=== PATIENT | male | born 1955 | race Caucasian/White ===

== ENCOUNTER 2020-10-20 17:25 | Emergency (ER) | payer OTHER ==
--- OUTSIDE RECORDS SUMMARY | 2020-10-20 17:27 | XMS REPORT | Continuity of Care Document ---
:1955 Author Organization [facility] t Address [address] [place] [address] Care Team Providers Name Role Phone Reji CONNER Attending Clinician Doctor Unassigned, Name Attending Clinician Unavailable Nguyen ARAMBULA Attending Clinician Pratibha CORMIER, A Attending Clinician Unavailable Jonelle CONNER, F Attending Clinician Black ARAMBULA, A Attending Clinician Problems This patient has no known problems. Allergies, Adverse Reactions, Alerts This patient has no known allergies or adverse reactions. Medications This patient has no known medications. Procedures This patient has no known procedures. Encounters Start End Encounter Admission Attending Care Care Encounter Source Date/Time Date/Time Type Type Clinicians Facility Department ID 2020-10-03 2020-10-03 Emergency Reji [facility] [id number] 10:50:00 14:09:00 Fern [place] [id number] [place] [id number] [place] [id number] 2020-10-03 2020-10-03 Orders Doctor VAZQUEZ 1.2.840.114 [id number] 00:00:00 00:00:00 Only UnassignedBAYRON [id number] [place] [facility] [id number] 2020-02-29 2020-02-29 Orders Doctor VAZQUEZ [id number] 00:00:00 00:00:00 Only UnassignedBAYRON [id number] [place] [facility] [id number] 2019-12-22 2019-12-22 [facility] 1.2.840.114 [id number] 00:00:00 00:00:00 Destin [place] [id number] [place] [id number] [facility] [phone] [address] 2019-12-15 2019-12-15 [facility] 1.2.840.114 [id number] 07:56:13 08:16:13 ne Visit Destin Harper [id number] [place] [id number] [facility] [phone] [address] 2019-11-24 2019-11-24 [facility] 1.2.840.114 [id number] 00:00:00 00:00:00 Destin Harper [id number] [place] [id number] [facility] [phone] [address] 2019-11-15 2019-11-15 [facility] 1.2.840.114 [id number] 08:45:20 09:05:20 ne Visit Destin Harper [id number] [place] [id number] [facility] [phone] [address] 2019-11-09 2019-11-09 [facility] 1.2.840.114 [id number] 00:00:00 00:00:00 Destin Harper [id number] [place] [id number] [facility] [phone] [address] 2019-11-08 2019-11-08 [facility] 1.2.840.114 [id number] 00:00:00 00:00:00 Destin Harper [id number] [place] [id number] [facility] [phone] [address] 2019-11-06 2019-11-06 Refill [facility] 1.2.840.114 [id number] 00:00:00 00:00:00 Destin Harper [id number] [place] [id number] [facility] [phone] [facility] 2019-11-03 2019-11-03 Transition Zac Mckinnon 1.2.840.114 [id number] 00:00:00 00:00:00 of Care Tacho Argueta [id number] [place] [id number] [phone] [facility] 2019-11-02 2019-11-02 Emergency [facility] 1.2.840.114 [id number] 18:53:00 21:17:00 Samantha Harper [id number] [place] [id number] [place] [phone] [id number] 2019-10-18 2019-10-18 [facility] 1.2.840[facility]114 [id number] 00:00:00 00:00:00 Destin Harper [id number] [place] [id number] [facility] [phone] [facility] 2019-10-11 2019-10-11 [facility] 1.2.840.114 [id number] 00:00:00 00:00:00 Mindi Harper [id number] [place] [id number] [facility] [phone] [facility] Results This patient has no known results.
--- NOTE | 2020-10-20 20:04 | RAD REPORT ---
EXAM DESCRIPTION: RAD - Abdomen Single View - 10/20/2020 7:51 pm CLINICAL HISTORY: PAIN Pain COMPARISON: No comparisons FINDINGS: The bowel gas pattern is non-obstructive. No evidence of free air or pneumatosis. Cholecys tectomy clips. Moderate stool is present throughout the colon. No suspicious calcifications. Moderate dextroscoliosis of the lumbar spine. Postsurgical changes are present lumbosacral spine. IMPRESSION: No acute finding evident. Moderate stool retention.
[2020-10-20 21:08] LABS: Urine Blood Negative (Negative); Urine Glucose Negative (Negative); Urine Protein Negative (Negative); Urine pH 8.5 (5.0-7.0)
--- NOTE | 2020-10-20 21:12 | ER ---
Nurse's Notes [facility] Name: Maikol Trevino Age: 65 yrs Sex: Male : 1955 Arrival Date: 10/20/2020 Time: 17:27 Bed DIS2 Private MD: Diagnosis: Cholelithiasis Presentation: 10/20 19:06 Chief complaint: Patient states: Left sided abdominal pain x 2 weeks. Pt stated that he kg was in [facility] 2 wks ago for the same thing and they gave him antibiotics for a stomach infection. Coronavirus screen: Client denies travel out of the [place] in the last 14 days. At this time, unable to obtain information related to travel outside the [place] At this time, the client does not indicate any symptoms associated with coronavirus-19. Ebola Screen: Patient negative for fever greater than or equal to 101.5 degrees Fahrenheit, and additional compatible Ebola Virus Disease symptoms Patient denies exposure to infectious person. Patient denies travel to an Ebola-affected area in the 21 days before illness onset. Initial Sepsis Screen: Does the patient meet any 2 criteria? No. Patient's initial sepsis screen is negative. Does the patient have a suspected source of infection? No. Patient's initial sepsis screen is negative. Risk Assessment: Do you want to hurt yourself or someone else? Patient reports no desire to harm self or others. Onset of symptoms is unknown. 19:06 Method Of Arrival: EMS: [facility] kg 19:06 Acuity: CHRISSIE 3 kg Triage Assessment: 19:09 General: Appears in no apparent distress. Behavior is calm, cooperative, appropriate kg for age, quiet. Pain: Complains of pain in left lower quadrant and abdomen diffusely. GI: Reports lower abdominal pain, upper abdominal pain, diarrhea, nausea, vomiting. Historical: - Allergies: 19:09 No Known Allergies; kg - Home Meds: 19:09 Bentyl 10 mg oral cap 1 cap [Active]; hyoscyamine sulfate 0.125 mg SL subl [Active]; kg Lomotil 2.5-0.025 mg oral tab [Active]; omeprazole 20 mg Oral TbEC [Active]; promethazine 12.5 mg Oral tab [Active]; Prozac 20 mg Oral cap [Active]; Risperdal 2 mg Oral tab [Active]; - PMHx: 19:09 Alcohol dependence; Bipolar disorder; COPD; GERD; Anxiety; kg - PSHx: 19:09 Appendectomy; hernia repair; kg - Immunization history:: Adult Immunizations up to date, Client reports receiving the 2nd dose of the Covid vaccine, Pfizer- unknown date. - Social history:: Smoking status: Patient reports the use of cigarette tobacco products, smokes one-half pack cigarettes per day. Screenin:15 Abuse screen: Denies threats or abuse. Denies injuries from another. Nutritional kg screening: No deficits noted. Tuberculosis screening: No symptoms or risk factors identified. Fall Risk None identified. Assessment: 22:40 General: Appears in no apparent distress. Behavior is calm, cooperative. Pain: bb Complains of pain in abdomen. Neuro: Level of Consciousness is awake, alert, obeys commands, Oriented to person, place, time, situation. Cardiovascular: Capillary refill < 3 seconds Patient's skin is warm and dry. Respiratory: Respiratory effort is even, unlabored, Respiratory pattern is regular. Derm: Skin is pink, warm \T\ dry. Musculoskeletal: Circulation, motion, and sensation intact. 10/21 00:57 Reassessment: Patient is alert, oriented x 3, equal unlabored respirations, skin bb warm/dry/pink. pt c/o pain 8/10 medicated per MAY will monitor for 15 minutes then pt to be discharged back to [facility]. Pt verbalized understanding of and agrees to plan of care. 01:25 Reassessment: pt states the pain is worse Dr Forde notified new orders received pt bb medicated see MAY. 02:18 Reassessment: Patient is alert, oriented x 3, equal unlabored respirations, skin bb warm/dry/pink. pt states he is feeling better discharge instructions given pt escorted to exit via wheelchair by technician trainee and transported by taxi to [place]. Vital Signs: 10/20 19:06 BP 139 / 73; Pulse 93; Resp 20; Temp 99.2(O); Pulse Ox 95% on R/A; Weight 78.02 kg (R); kg Height 5 ft. 8 in. (172.72 cm); Pain 8/10; 22:40 BP 135 / 69; Pulse 91; Resp 16 S; Temp 99.6(O); Pulse Ox 95% on R/A; bb 23:46 BP 122 / 78 LA Sitting (auto/reg); Pulse 93 MON; Resp 16 S; Temp 99.7(O); Pulse Ox 97% ds4 on R/A; Pain 8/10; 10/21 00:58 BP 126 / 78; Pulse 94; Resp 16 S; Temp 99.3(O); Pulse Ox 94% on R/A; bb 02:19 BP 133 / 70; Pulse 95; Resp 18 S; Pulse Ox 93% on R/A; bb 10/20 19:06 Body Mass Index 26.15 (78.02 kg, 172.72 cm) kg ED Course: 10/20 17:27 Patient arrived in ED. mr 19:09 Triage completed. kg 19:09 Arm band placed on. kg 19:15 Patient has correct armband on for positive identification. kg 19:50 XRAY Abdomen 1 View In Process Unspecified. EDMS 22:02 Miki Forde MD is Attending Physician. pkl 22:17 Naz Lui RN is Primary Nurse. bb 22:38 Missed attempt(s): 20 gauge in right forearm. Bleeding controlled, band aid applied, ds4 catheter tip intact. 22:40 Initial lab(s) drawn, by ED staff, sent to lab. Inserted saline lock: 22 gauge in right bb wrist, using aseptic technique. Blood collected. 23:01 CT Abd/Pelvis - IV Contrast Only In Process Unspecified. EDMS 10/21 00:38 Jose Mccray MD is Referral Physician. pkl 02:26 No provider procedures requiring assistance completed. IV discontinued, intact, bb bleeding controlled, No redness/swelling at site. Pressure dressing applied. Administered Medications: 10/20 22:42 Drug: NS 0.9% 1000 ml Route: IV; Rate: 125 ml/hr; Site: right wrist; bb 10/21 02:15 Follow up: IV Status: Order to discontinue infusion; IV Intake: 500ml bb 00:56 Drug: morphine 4 mg {Note: RASS 0.} Route: IVP; Site: right wrist; bb 01:26 Follow up: Response: Pain is unchanged, physician notified bb 00:56 Drug: Zofran (Ondansetron) 4 mg Route: IVP; Site: right wrist; bb 01:26 Follow up: Response: No adverse reaction bb :25 Drug: fentaNYL (PF) 25 mcg Route: IVP; Site: right wrist; bb 02:20 Follow up: Response: No adverse reaction; Pain is decreased; RASS: Alert and Calm (0) bb Intake: 02:15 IV: 500ml; Total: 500ml. bb Outcome: 10/20 21:12 Patient left the ED. bb 10/21 00:39 Discharge ordered by . crystal 02:26 Discharged to home via wheelchair. bb 02:26 Condition: stable 02:26 Discharge instructions given to patient, Instructed on discharge instructions, follow up and referral plans. medication usage, Demonstrated understanding of instructions, follow-up care, medications, Prescriptions given X 1. 02:26 Patient left the ED. bb Signatures: Dispatcher [employer] EDMS Miki Forde MD MD pkl Rivera, Mary mr Ballard, Brenda RN RN Vick Noriega ds4 Jeannette Song RN RN kg
[2020-10-20 22:48] LABS: Urine Blood Negative (Negative); Urine Glucose Negative (Negative); Urine Protein Negative (Negative); Urine Specific Gravity 1.015 (1.005-1.030); Urine pH 8.5 (5.0-7.0)
[2020-10-20] MEDS ORDERED: NA CHLORIDE 0.9% 1,000 ML ONE (22:50)
[2020-10-20 22:52] LABS: Absolute Lymphocytes (CBC) 1.7 K/uL (0.7-4.9); Basophils % 0.5 % (0-1.3); Hematocrit 40.2 % (39.6-49.0); Lymphocytes % 15.1 % (15.3-44.8); MPV 8.1 fL (7.6-11.3)
[2020-10-20 23:10] LABS: ALT/SGPT 27 U/L (12-78); AST/SGOT 18 U/L (15-37); Albumin 3.7 g/dL (3.4-5.0); Alkaline Phosphatase 78 U/L (45-117); BUN Blood Urea Nitrogen 8 mg/dL (7-18); Bicarbonate 25 mmol/L (21-32); Bilirubin Direct < 0.1 mg/dL (0-0.2); Bilirubin Total 0.4 mg/dL (0.2-1.0); Glucose Level 104 mg/dL (74-106); Lipase 93 U/L (73-393); Protein, Total 7.4 g/dL (6.4-8.2); Sodium Level 142 mmol/L (136-145)
[2020-10-20 23:12] LABS: Barbiturates NEGATIVE (NEGATIVE); Benzodiazepines NEGATIVE (NEGATIVE); Cocaine NEGATIVE (NEGATIVE); METHAMPHETAM NEGATIVE (NEGATIVE); Methadone NEGATIVE (NEGATIVE); Opiates NEGATIVE (NEGATIVE); Phencyclidine NEGATIVE (NEGATIVE); THC Cannibis NEGATIVE (NEGATIVE)
--- NOTE | 2020-10-21 00:40 | EDPHYS ---
Physician Documentation [facility] Name: Maikol Trevino Age: 65 yrs Sex: Male : 1955 Arrival Date: 10/20/2020 Time: 17:27 Bed DIS2 Private MD: ED Physician Miki Forde HPI: 10/20 22:09 This 65 yrs old Male presents to ER via EMS with complaints of Abdominal Pain.pkl 22:09 The patient presents with abdominal pain in the left upper quadrant, in the left lower pkl quadrant. Onset: The symptoms/episode began/occurred today. The symptoms do not radiate. Associated signs and symptoms: none. The patient has experienced a previous episode, approximately 2 weeks ago, Patient was seen at [facility] ER and given antibiotic and sent home.. Historical: - Allergies: 19:09 No Known Allergies; kg - Home Meds: 19:09 Bentyl 10 mg oral cap 1 cap [Active]; hyoscyamine sulfate 0.125 mg SL subl [Active]; kg Lomotil 2.5-0.025 mg oral tab [Active]; omeprazole 20 mg Oral TbEC [Active]; promethazine 12.5 mg Oral tab [Active]; Prozac 20 mg Oral cap [Active]; Risperdal 2 mg Oral tab [Active]; - PMHx: 19:09 Alcohol dependence; Bipolar disorder; COPD; GERD; Anxiety; kg - PSHx: 19:09 Appendectomy; hernia repair; kg - Immunization history:: Adult Immunizations up to date, Client reports receiving the 2nd dose of the Covid vaccine, Pfizer- unknown date. - Social history:: Smoking status: Patient reports the use of cigarette tobacco products, smokes one-half pack cigarettes per day. ROS: 22:14 Eyes: Negative for injury, pain, redness, and discharge, ENT: Negative for injury, pkl pain, and discharge, Neck: Negative for injury, pain, and swelling, Cardiovascular: Negative for chest pain, palpitations, and edema, Respiratory: Negative for shortness of breath, cough, wheezing, and pleuritic chest pain. 22:14 Abdomen/GI: Positive for abdominal pain, of the left upper quadrant and left lower quadrant. 22:14 Back: Negative for acute changes. 22:14 : Negative for urinary symptoms. 22:14 MS/extremity: Negative for acute changes. 22:14 Skin: Negative for rash. 22:14 Neuro: Negative for altered mental status, loss of consciousness. Exam: 22:14 Head/Face: Normocephalic, atraumatic. Eyes: Pupils equal round and reactive to light, pkl extra-ocular motions intact. Lids and lashes normal. Conjunctiva and sclera are non-icteric and not injected. Cornea within normal limits. Periorbital areas with no swelling, redness, or edema. ENT: Nares patent. No nasal discharge, no septal abnormalities noted. Tympanic membranes are normal and external auditory canals are clear. Oropharynx with no redness, swelling, or masses, exudates, or evidence of obstruction, uvula midline. Mucous membranes moist. Neck: Trachea midline, no thyromegaly or masses palpated, and no cervical lymphadenopathy. Supple, full range of motion without nuchal rigidity, or vertebral point tenderness. No Meningismus. Chest/axilla: Normal chest wall appearance and motion. Nontender with no deformity. No lesions are appreciated. Cardiovascular: Regular rate and rhythm with a normal S1 and S2. No gallops, murmurs, or rubs. Normal PMI, no JVD. No pulse deficits. Respiratory: Lungs have equal breath sounds bilaterally, clear to auscultation and percussion. No rales, rhonchi or wheezes noted. No increased work of breathing, no retractions or nasal flaring. 22:14 Abdomen/GI: Bowel sounds: normal, Palpation: soft, mild abdominal tenderness, in the left upper quadrant and left lower quadrant. 22:14 Back: Exam negative for acute changes. 22:14 : Exam negative for acute changes. 22:14 Musculoskeletal/extremity: Exam is negative for acute changes. 22:14 Skin: Exam negative for rash. 22:14 Neuro: Orientation: is normal, Mentation: is normal, Cranial nerves: grossly normal, Motor: is normal. Vital Signs: 19:06 BP 139 / 73; Pulse 93; Resp 20; Temp 99.2(O); Pulse Ox 95% on R/A; Weight 78.02 kg (R); kg Height 5 ft. 8 in. (172.72 cm); Pain 8/10; 22:40 BP 135 / 69; Pulse 91; Resp 16 S; Temp 99.6(O); Pulse Ox 95% on R/A; bb 23:46 BP 122 / 78 LA Sitting (auto/reg); Pulse 93 MON; Resp 16 S; Temp 99.7(O); Pulse Ox 97% ds4 on R/A; Pain 8/10; 10/21 00:58 BP 126 / 78; Pulse 94; Resp 16 S; Temp 99.3(O); Pulse Ox 94% on R/A; bb 02:19 BP 133 / 70; Pulse 95; Resp 18 S; Pulse Ox 93% on R/A; bb 10/20 19:06 Body Mass Index 26.15 (78.02 kg, 172.72 cm) kg MDM: 00:25 Data reviewed: vital signs, nurses notes, lab test result(s), radiologic studies, CT pkl scan. 00:35 ED course: Discussed lab and CT Scan result with patient. Advised to follow up with crystal Catalan ( Surgeon ) 2 to 3 days. Return if necessary. Patient understood instruction. 00:39 Patient medically screened. pkl 10/20 19:18 Order name: Basic Metabolic Panel; Complete Time: 23:10 kg 10/20 19:18 Order name: CBC with Diff; Complete Time: 22:57 kg 10/20 19:18 Order name: Hepatic Function; Complete Time: 23:10 kg 10/20 19:18 Order name: Lipase; Complete Time: 23:10 kg 10/20 21:08 Order name: Urine Dipstick-Ancillary; Complete Time: 22:08 EDMS 10/20 22:13 Order name: ETOH Level; Complete Time: 23:40 pkl 10/20 19:18 Order name: XRAY Abdomen 1 View; Complete Time: 22:08 kg 10/20 22:13 Order name: UDS; Complete Time: 23:13 pkl 10/20 22:13 Order name: CT Abd/Pelvis - IV Contrast Only pkl 10/20 22:48 Order name: Urine Dipstick-Ancillary; Complete Time: 22:50 EDMS 10/20 23:14 Order name: CREATININE WHOLE BLOOD; Complete Time: 23:40 EDMS 10/20 19:18 Order name: IV Saline Lock; Complete Time: 22:42 kg 10/20 19:18 Order name: Labs collected and sent; Complete Time: 22:42 kg Administered Medications: 10/20 22:42 Drug: NS 0.9% 1000 ml Route: IV; Rate: 125 ml/hr; Site: right wrist; bb 10/21 02:15 Follow up: IV Status: Order to discontinue infusion; IV Intake: 500ml bb 00:56 Drug: morphine 4 mg {Note: RASS 0.} Route: IVP; Site: right wrist; bb 01: Follow up: Response: Pain is unchanged, physician notified bb 00:56 Drug: Zofran (Ondansetron) 4 mg Route: IVP; Site: right wrist; bb : Follow up: Response: No adverse reaction bb 01: Drug: fentaNYL (PF) 25 mcg Route: IVP; Site: right wrist; bb 02:20 Follow up: Response: No adverse reaction; Pain is decreased; RASS: Alert and Calm (0) bb Disposition Summary: 10/21/20 00:39 Discharge Ordered Location: Home pkl Problem: new pkl Symptoms: have improved pkl Condition: Stable pkl Diagnosis - Cholelithiasis pkl Followup: pkl - With: Jose Mccray MD - When: 2 - 3 days - Reason: Re-evaluation by your physician Discharge Instructions: - Discharge Summary Sheet pkl Forms: - Medication Reconciliation Form pkl - Thank You Letter pkl - Antibiotic Education pkl - Prescription Opioid Use pkl Prescriptions: - Cipro 500 mg Oral Tablet - take 1 tablet by ORAL route every 12 hours for 7 days; 14 tablet; Refills: 0, pkl Product Selection Permitted Signatures: Dispatcher [facility] Miki Diane MD MD pkl Naz Lui RN RN bb Jeannette Song RN RN kg Corrections: (The following items were deleted from the chart) 10/20 22:17 21:12 before being seen by provider bb 22:17 21:12 (see nurse's notes) bb 22:37 22:13 ETHANOL+C.LAB.BRZ ordered. EDMS EDMS 22:37 22:14 URINE DRUG SCREEN+CHEM UR.LAB.BRZ ordered. EDMS EDMS 22:38 19:19 BASIC METABOLIC PANEL+C.LAB.BRZ ordered. EDMS EDMS 22:38 19:19 CBC+H.LAB.BRZ ordered. EDMS EDMS 22:38 19:19 HEPATIC FUNCTION+C.LAB.BRZ ordered. EDMS EDMS 22:38 19:19 LIPASE+C.LAB.BRZ ordered. EDMS EDMS
[2020-10-21] MEDS ORDERED: ONDANSETRON 4 MG/2 ML VIAL ONE (01:11)
[2020-10-21] MEDS ORDERED: MORPHINE 4 MG/ML SYR ONE (01:11)
[2020-10-21] MEDS ORDERED: FENTANYL CITR 100 MCG/2 ML ONE (01:44)
[2020-10-21 02:36] VITALS: TEMP 99.3
[2020-10-21 02:38] VITALS: BP 133/70; O2SAT 93
--- NOTE | 2020-10-21 20:30 | RAD REPORT ---
EXAM DESCRIPTION: CT - Abdomen Pelvis W Contrast - 10/21/2020 6:54 am CLINICAL HISTORY: 65 years Male left mid abdominal pain with bloating and diarrhea, prior appendecto my TECHNIQUE: Axial CT imaging of the abdomen and pelvis was performed following the administration of intravenous contrast.. Oral contrast was not administered. Sagittal and coronal reconstructed image s were then performed. The CT study is performed according to ALARA (as low as reasonably achievabl e) or ALARA/IMAGE GENTLY, with automatic adjustment of mA and/or kV according to patient size. Performed on: 10/20/2020 at 10:59 PM. COMPARISON: No prior studies were available for comparison. FINDINGS: Lung bases: The lung bases are clear. There is minimal lingular atelectasis. Liver: The liver is normal in size and configuration. No focal hepatic abnormalities are identified. Liver attenuation is within normal limits. The hepatic and portal veins are patent. Spleen: The spleen is normal is size, configuration and attenuation. Gallbladder and bile duct: The gallbladder is well distended and contains gallstones. There is eith er gallbladder wall edema and/or pericholecystic fluid. Acute cholecystitis is not excluded. There is no biliary ductal dilatation. Pancreas: The pancreas is grossly normal in size and configuration. Adrenal Glands: The adrenal glands are normal in size and configuration. Kidneys: The kidneys are normal in size and configuration. There is no evidence of hydronephrosis. Th ere is a 3 mm nonobstructing calcification in the upper pole of the right kidney. No definite solid o r cystic renal mass lesions are identified. Stomach: The stomach is grossly normal. There is no definite hiatal hernia. Bowel: The bowel gas pattern is non specific and non obstructive. There is some liquid feces in the c ecum and ascending colon which is nonspecific but can be seen with diarrheal disease. Appendix: The appendix is surgically absent. Free air: There is no evidence of free air. Free fluid: There is no evidence of free fluid. Vasculature: The aorta is normal in caliber and contour. The inferior vena cava is grossly unremarkab le. Lymphadenopathy: No pathologic lymphadenopathy is identified. Bladder: The bladder is well distended and smooth in contour. Reproductive: The prostate gland is grossly within normal limits. Bones: No acute osseous abnormalities are identified. There is mild scoliosis of the lumbar spine con vex to the right superiorly. Soft tissues: No acute soft tissue abnormalities are identified. There is a small fat-containing vent ral umbilical hernia. IMPRESSION: 1. Cholelithiasis with either gallbladder wall edema and/or pericholecystic fluid. Acu te cholecystitis is not excluded. 2. 3 mm nonobstructing calcification in the upper pole of the right kidney. 3. Remote appendectomy. 4. Liquid feces in the cecum and ascending colon which is nonspecific but can be seen with diarrhea l disease. 5. Small fat-containing ventral umbilical hernia. 6. Mild scoliosis of the lumbar spine convex to the right superiorly. 7. Nonspecific and nonobstructive bowel gas pattern. Electronically signed by: Lauren Kilpatrick DO 10/20/2020 11:23 PM CDT Due to temporary technical issues with the PACS/Fluency reporting system, reports are being signed by the in house radiologists without review as a courtesy to insure prompt reporting. The interpreting radiologist is fully responsible for the content of the report.
== END 2020-10-21 02:26 | disposition home or self-care (01) ==
LOC: ER 17:25
DX: K80.20 Calculus of gallbladder without cholecystitis without obstruction (principal); F10.20 Alcohol dependence, uncomplicated; F31.9 Bipolar disorder, unspecified; J44.9 Chronic obstructive pulmonary disease, unspecified; F17.210 Nicotine dependence, cigarettes, uncomplicated
CPT/HCPCS: 96361; 85025; 80048; 36415; 80320; 82565; 80076; 81003 ×2; 83690; 80307; 74177; 74018; 96375; 96374; 99284; Q9967; J3010; J7030; J2405